=== PATIENT | male | born 1960 | race Caucasian/White ===

== ENCOUNTER 2016-08-07 14:13 | Emergency (ER) ==
[2016-08-07] MEDS ORDERED: NS 1,000 ML IV ONE (15:12)
--- NOTE | 2016-08-07 15:12 | PROVIDER DOCUMENTATION ---
HPI-Syncope/Dizziness - General Chief Complaint: Syncope Stated Complaint: SYNCOPAL EPISODE Time Seen by Provider: 08/07/16 14:25 Source: patient Allergies/Adverse Reactions: Patient Allergies Allergy/AdvReac Type Severity Reaction Status Date / Time No Known Allergies Allergy Verified 08/07/16 14:55 Home Medications: Home Medication List Medication Instructions Recorded Confirmed Last Taken Type Omeprazole 40 mg PO QAM 07/18/15 08/07/16 07/18/15 History Valsartan/Hydrochlorothiazide 1 cap PO DAILY 07/18/15 07/18/15 07/18/15 History [Diovan Hct 160-12.5 mg Tab] Cyanocobalamin (Vitamin B-12) 1 tab PO DAILY 08/07/16 08/07/16 Unknown History [Vitamin B12] Ondansetron [Zofran] 1 tab PO PRN PRN 08/07/16 08/07/16 Unknown History Secukinumab [Cosentyx Pen] 300 mg IM DIRECTED 08/07/16 08/07/16 Unknown History - History of Present Illness-Syncope/Dizzy Nature of Presenting Problem: patient is a 56 y/o M that presents to the ER after having two episodes of syncope. patient reports having n/v and poor appetite over the past few days. denies chest pain or shortness of breath. called ahead and has been following patient for possible cirrhosis. patient is a daily drinker in which drank vodka this am. patient BP was 80 systolic on arrival per EMS Prior Episodes: reports: multiple episodes today Onset/Duration: reports: abrupt, this afternoon Timing: reports: improving Symptoms prior to episode: reports: lightheaded. denies: confusion, recent head trauma, rapid heart beat Context: reports: felt faint, almost passed out Loss of Consciousness: no loss of consciousness Location of injury. (If syncope resulted in an injury.): reports: none Current Symptoms: reports: weakness, lightheaded, lightheaded Recently Seen Here or By Another Healthcare Provider: No Review of Systems - Adult - REVIEW OF SYSTEMS - ADULT Constitutional: denies: chills, fever, fatique Eyes: reports: no symptoms reported Ears, Nose, Mouth & Throat: reports: no symptoms reported Cardiovascular: denies: chest pain, orthopnea, palpitations Respiratory: denies: cough, shortness of breath, wheezing Gastrointestinal: reports: nausea, poor appetite, vomiting. denies: abdominal pain, hematemesis, constipation, diarrhea, rectal bleeding Genitourinary: denies: dysuria, frequency, hematuria, urinary retention Musculoskeletal: reports: muscle weakness. denies: muscle aches Integumentary: reports: no symptoms reported Neurological: reports: dizziness/vertigo, syncope. denies: headache/migraines Psychiatric: reports: no symptoms reported Endocrine: reports: no symptoms reported Hematologic/Lymphatic: reports: no symptoms reported Allergic/Immunologic: reports: no symptoms reported All Other Systems: Reviewed and Negative Past History - Adult - PAST MEDICAL HISTORY-ADULT Review of Records: reports: Old Records Reviewed, Nursing Assessment Review, Medications Reviewed Cardiovascular: reports: HTN Gastrointestinal: reports: GERD, liver disease (cirrhosis) Musculoskeletal: reports: arthritis (psoriatic ) - IMMUNIZATION STATUS Childhood Immunizations: See Nurse Assessment Flu Vaccine: See Nurse Assessment - FAMILY HISTORY Family History: reviewed, not pertinent - SOCIAL HISTORY Smoking: non-smoker Alcohol Use Frequency: every day Number of drinks per typical drinking period:: 5-10 drinks Living Situation: family Physical Exam-General - PHYSICAL EXAM-ADULT Initial Vital Signs Reviewed: Yes - CONSTITUTIONAL General Appearance: alert, other (ill appearing) - EYES Eyes: PERRL/EOMI, scleral icterus - HEAD, EARS, NOSE, MOUTH & THROAT HENMT: normocephalic/atraumatic, pharynx normal, other (dry mucus membranes) - NECK Neck: full range of motion, normal inspection. negative: lymphadenopathy - RESPIRATORY Respiratory: lungs clear, normal breath sounds, no respiratory distress, no accessory muscle use - CARDIOVASCULAR Cardiovascular: regular rate, rhythm, no edema, no JVD - GASTROINTESTINAL (ABDOMEN) Abdominal Exam: normal bowel sounds, no pulsatile mass, hepatomegaly, other ( mild ascities with fluid tension level). negative: distended, guarding, tenderness - MUSCULOSKELETAL Back Exam: no CVA tenderness, no vertebral tenderness Extremity: normal range of motion, no pedal edema, normal capillary refill - SKIN Integumentary: warm/dry, jaundice - NEUROLOGIC Neurologic: grossly normal, no motor/sensory deficits - PSYCHIATRIC Psych/Mental Status: normal mood/affect, normal thought content, normal thought process, oriented x 3 Progress - PLAN OF CARE/RESULTS Progress/Plan/Lab Results: plan of care-labs, ekg, fluids, admit post labs Vital Signs Temp Pulse Resp BP Pulse Ox 08/07/16 16:20 100 H 17 113/56 96 08/07/16 15:38 112 H 19 77/47 97 08/07/16 14:52 97 H 29 H 124/59 97 08/07/16 14:32 97.6 F 90 20 110/73 98 No Known Allergies Allergy (Verified 08/07/16 14:55) Omeprazole 40 mg PO QAM 07/18/15 Valsartan/Hydrochlorothiazide [Diovan Hct 160-12.5 mg Tab] 1 cap PO DAILY Cyanocobalamin (Vitamin B-12) [Vitamin B12] 1 tab PO DAILY 08/07/16 Ondansetron [Zofran] 1 tab PO PRN PRN 08/07/16 Secukinumab [Cosentyx Pen] 300 mg IM DIRECTED 08/07/16 Dietary Diet NPO Start SunAug 07 1510 Laboratory 08/07/16 08/07/16 08/07/16 16:00 15:56 15:14 WBC 9.94 RBC 3.54 L Hgb 12.2 L Hct 33.9 L MCV 95.8 MCH 34.5 H MCHC 36.0 RDW Std Deviation 16.9 H Plt Count 93 L MPV 11.7 H Immature Gran % (Auto) 0.5 Neut % (Auto) 58.7 Lymph % (Auto) 23.6 [place] % (Auto) 14.5 H Eos % (Auto) 1.6 Baso % (Auto) 1.1 H Immature Gran # (Auto) 0.05 H Neut # (Auto) 5.83 Lymph # (Auto) 2.35 [place] # (Auto) 1.44 H Eos # (Auto) 0.16 Baso # (Auto) 0.11 Sodium Potassium Chloride Carbon Dioxide Anion Gap BUN Creatinine Estimated GFR/1.73 m2 BUN/Creatinine Ratio Glucose Calculated Osmolality Calcium Total Bilirubin AST ALT Alkaline Phosphatase Total Protein Albumin Globulin Albumin/Globulin Ratio Amylase Lipase Plasma Lactate 6.2 H Urine Source CLEAN CATCH Urine Color YELLOW Urine Turbidity CLEAR Urine pH 6.5 Ur Specific [place] 1.006 Urine Protein TRACE A Ur Glucose (Stick) NEGATIVE Ur Ketones (Stick) NEGATIVE Urine Blood NEGATIVE Urine Nitrite NEGATIVE Urine Bilirubin SMALL A Urobilinogen Dipstick 2 A Urine Leukocytes NEGATIVE Urine WBC (Auto) <10 Urine RBC (Auto) <10 U Epithel Cells (Auto) <10 Urine Bacteria (Auto) NEGATIVE 08/07/16 15:14 WBC RBC Hgb Hct MCV MCH MCHC RDW Std Deviation Plt Count MPV Immature Gran % (Auto) Neut % (Auto) Lymph % (Auto) [place] % (Auto) Eos % (Auto) Baso % (Auto) Immature Gran # (Auto) Neut # (Auto) Lymph # (Auto) [place] # (Auto) Eos # (Auto) Baso # (Auto) Sodium 135 L Potassium 3.5 Chloride 94 L Carbon Dioxide 16 L Anion Gap 25 BUN 42 H Creatinine 4.0 H Estimated GFR/1.73 m2 16 BUN/Creatinine Ratio 11 Glucose 118 H Calculated Osmolality 282 Calcium 7.9 L Total Bilirubin 12.58 H AST 354 H ALT 104 H Alkaline Phosphatase 211 H Total Protein 7.1 Albumin 2.7 L Globulin 4.4 Albumin/Globulin Ratio 0.6 Amylase 128 Lipase 110 H Plasma Lactate Urine Source Urine Color Urine Turbidity Urine pH Ur Specific [place] Urine Protein Ur Glucose (Stick) Ur Ketones (Stick) Urine Blood Urine Nitrite Urine Bilirubin Urobilinogen Dipstick Urine Leukocytes Urine WBC (Auto) Urine RBC (Auto) U Epithel Cells (Auto) Urine Bacteria (Auto) Orders Category Date Time Status Finger Stick Blood Sugar (ED) DIRECTED Care 08/07/16 15:11 Active Saline Loc DIRECTED Care 08/07/16 15:10 Active NPO Diet 08/07/16 15:10 Active CHEST-2 VIEWS [RAD] Stat Exams 08/07/16 15:11 Draft AMYLASE [CHEM] Stat Lab 08/07/16 15:14 Completed BLOOD CULTURE [BLDCUL] Stat Lab 08/07/16 16:00 Results CBC WITH ELECTRONIC DIFF [HEME] Stat Lab 08/07/16 15:14 Completed COMPREHENSIVE METABOLIC PANEL [CHEM] Stat Lab 08/07/16 15:14 Completed LACTATE, PLASMA [CHEM] Stat Lab 08/07/16 16:00 Completed LIPASE [CHEM] Stat Lab 08/07/16 15:14 Completed URINALYSIS W/POSS RFLX CULT [URINALYSIS] Stat Lab 08/07/16 15:56 Completed 0.9% Sodium Chloride Inj [Ns] 1,000 ml Med 08/07/16 15:12 Active IV 250 mls/hr 0.9% Sodium Chloride Inj [Ns] 1,000 ml Med 08/07/16 15:43 Discontinued IV 999 mls/hr Piperacil/Tazobact 3.375 gm/Ns [Zosyn 3.375 gm/Ns] 50 Med 08/07/16 15:43 Discontinued ml IV NOW EKG [EKG] Stat Ther 08/07/16 15:11 Ordered - REASSESSMENT Reassessment #1 Time Reassessed: 15:44 Status: other ( updated on patient, pt went to stand for orthostatics, pt became light headed and hypotensive with systolic in 70s. patient hadn't started his fluid bolus yet) - CONSULTS/PCP/HOSPITALIST Notification #1 *Consult/PCP/Hospitalist*: Time Discussed: 16:47 Reason/Comments: admit, ct scan abd pelv with po contrast only Consult Disposition: Will see in ED, Admit Departure - Departure Time of Disposition Order: 16:47 DIAGNOSIS: Elevated lactic acid level, Acute kidney injury, Elevated liver enzymes, Jaundice, Abnormal laboratory test result Syncope Qualifiers: Syncope type: unspecified Qualified Code(s): R55 - Syncope and collapse Hypotension Qualifiers: Hypotension type: other hypotension type Qualified Code(s): I95.89 - Other hypotension Sepsis Qualifiers: Sepsis type: sepsis due to unspecified organism Qualified Code(s): A41.9 - Sepsis, unspecified organism Disposition: ADMITTED INPATIENT 09 Certified Medical Emergency: Emergent Condition: Stable - Critical Care Note Total Time (mins): 45 Critical Care Statement: This patient required my direct personal management to treat or rule out processes, the absence of which, could potentiallly result in sudden, clinically significant life or limb threatening deterioration. Attestation - Scribe Verification/Attestation Scribe:: Jovon Arenas Acting as Scribe for:: Vikram Kulkarni Scribe documention review:: This chart was documented by a scribe and accurately reflects the service the provider performed and the decisions made by the provider. Physician Attestation - Physician Attestation I, the provider, attest to the following statement:: Vikram Kulkarni Physician documentation Attestation:: This documentation recorded by the scribe accurately reflects the service I personally performed and the decisions made by me.
[2016-08-07] MEDS ORDERED: ZOSYN 3.375 GM/NS 50 ML IV ONE (15:43)
[2016-08-07] MEDS: NS 1,000 ML IV ONE ×2 (15:43→16:12)
--- NOTE | 2016-08-07 15:53 | Diag Imaging Result Document ---
PROCEDURE NAME: CHEST-2 VIEWS - 08/07/2016 CHEST, 2 VIEWS: COMPARISON: 07/18/2015. FINDINGS: Lung volumes are critically low with bibasilar atelectasis. No obvious infiltrates. The heart size is grossly normal. IMPRESSION: Critically low lung volumes but no obvious acute disease.
[2016-08-07 16:13] LABS: BASO% 1.1 % (0.0-0.8); EOS# 0.16 X1000 (0.0-0.7); EOS% 1.6 % (0.0-10.0); HEMATOCRIT 33.9 % (42.0-52.0); HEMOGLOBIN 12.2 g/dL (14.0-18.0); IMM GRAN# 0.05 X1000 (0.0-0.04); IMM GRAN% 0.5 % (0.0-0.5); LYMPH# 2.35 X1000 (1.2-3.4); LYMPH% 23.6 % (20.5-51.1); MANUAL DIFF NEEDED? NO; MCH 34.5 PG (27-31); MCV 95.8 FL (81-99); MONO# 1.44 X1000 (0.11-0.59); MONO% 14.5 % (1.7-9.3); MPV 11.7 FL (7.4-10.4); NEUT% 58.7 % (42.2-75.2); PLT 93 X1000 (130-400); RBC 3.54 XMIL (4.7-6.1)
[2016-08-07 16:26] LABS: URINE CULTURE NEEDED? NO; URINE MICRO REVIEW NEEDED? NO; URINE SOURCE CLEAN CATCH
[2016-08-07 16:30] LABS: BILIRUBIN URINE SMALL (NEGATIVE); BLOOD URINE NEGATIVE (NEGATIVE); COLOR YELLOW; GLUCOSE URINE NEGATIVE (NEGATIVE); LEUKOCYTES URINE NEGATIVE (NEGATIVE); NITRITE URINE NEGATIVE (NEGATIVE); PH URINE 6.5; PROTEIN URINE TRACE mg/dL (NEGATIVE); SP GRAVITY URINE 1.006; TURBIDITY URINE CLEAR (CLEAR); UR EPITHELIAL CELLS <10 /HPF (<10); URINE BACTERIA NEGATIVE /HPF; URINE RBC <10 /HPF (<10); URINE WBC <10 /HPF (<10); UROBILINOGEN URINE 2 mg/dL (NORMAL)
[2016-08-07 16:32] LABS: ALBUMIN 2.7 g/dL (3.5-5.0); CALCIUM 7.9 mg/dL (8.8-10.2); POTASSIUM 3.5 mmol/L (3.5-5.1); TOTAL BILIRUBIN 12.58 mg/dL (0.20-1.00); TOTAL PROTEIN 7.1 g/dL (6.3-8.3)
[2016-08-07 17:38] LABS: UR AMPHETAMINES QUAL NONE DETECTED (NONE DETECT); UR BARBITUATES QUAL NONE DETECTED (NONE DETECT); UR BENZODIAZEPIN QUAL NONE DETECTED (NONE DETECT); UR CANNABINOIDS QUAL NONE DETECTED (NONE DETECT); UR COCAINE QUAL NONE DETECTED (NONE DETECT); UR CREAT RANDOM 42.5 mg/dL (14-26); UR METHADONE QUAL NONE DETECTED (NONE DETECT); UR OPIATES QUAL NONE DETECTED (NONE DETECT); UR OXYCODONE QUAL NONE DETECTED (NONE DETECT); UR PCP QUAL NONE DETECTED (NONE DETECT)
[2016-08-07] MEDS ORDERED: SODIUM CHLORIDE 0.9% INJ SCH (17:46)
[2016-08-07] MEDS ORDERED: PROTONIX IV SCH (17:46)
[2016-08-07] MEDS ORDERED: NS 1,000 ML IV SCH (17:46)
[2016-08-07] MEDS ORDERED: ZOFRAN IV PRN (17:46)
[2016-08-07] MEDS ORDERED: ATIVAN IV PRN ×2 (17:46)
[2016-08-07 17:54] LABS: INR 1.5; PROTIME 16.2 Seconds (9.2-11.7)
[2016-08-07 18:19] LABS: MAGNESIUM 1.5 mg/dL (1.5-2.7)
[2016-08-07 18:22] LABS: HEMOGLOBIN A1C 5.6 % (4.8-6.0)
[2016-08-07 18:24] LABS: TOTAL IRON 112 ug/dL (53-167); UNBOUND IRON < 1 ug/dL (112-346)
[2016-08-07 18:25] LABS: ACETAMINOPHEN 2.1 ug/mL (10-30)
[2016-08-07 18:31] LABS: FREE T4 1.21 ng/dL (0.93-1.70)
[2016-08-07 19:11] VITALS: BP 102/59
--- NOTE | 2016-08-07 19:27 | CONSULTATION ---
DATE OF CONSULTATION: 08/07/2016 REFERRING PHYSICIAN: Thierno Lowry MD PRIMARY CARE PHYSICIAN: Travon Mirza MD INDICATION FOR CONSULTATION: Acute liver failure. HISTORY OF PRESENT ILLNESS: The patient is a 56-year-old white male followed in our clinic. His past medical history includes psoriasis, psoriatic arthritis, fatty liver, alcohol liver disease, hypertension and obesity. He was initially referred to us by Dr. Zuleta in [place], [place] for evaluation of elevated liver function tests. He had previously been treated with methotrexate for psoriasis followed by transition to Remicade then Enbrel when he developed elevated liver function tests. He also has a known history of fatty liver but has not been compliant with weight reduction. He was in the process of being evaluated for the persistently elevated liver function tests which included a negative hepatitis profile and negative ERIK. He was scheduled to undergo a liver biopsy. However, his blood pressure was high with diastolics in the 120s to 130 range precluding performing a liver biopsy under those circumstances. He was working with his primary care physician over the last 3-4 weeks in order to improve his blood pressure control. We received a call from his who reports that the patient developed fever, hypotension, nausea with vomiting and worsening abdominal pain. He was brought to the emergency room, where is found to be hypotensive with a blood pressure of 77/47 and a heart rate of 112. He subsequently was treated with IV fluids, and had recovery of his blood pressure. His labs were remarkable for elevated liver function tests consistent with acute hepatic failure. His reports that he is clear now but has had episodes of confusion at home. We are asked to participate in his care. PAST MEDICAL HISTORY: 1. Fatty liver disease. 2. Psoriasis. 3. Psoriatic arthritis. 4. Hypertension. 5. Obesity. 6. 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 PAST SURGICAL HISTORY: 1. Appendectomy. 2. Cholecystectomy. 3. Hernia repair. 4. Shoulder surgery. MEDICATION ALLERGIES: None. HOME MEDICATIONS: 1. Diovan. 2. Cosentyx. 3. Zofran. 4. Prilosec. 5. Vitamin B12. SOCIAL HISTORY: Remarkable in that he drinks 4 double shots of vodka throughout the day. He denies tobacco or recreational drug use. FAMILY HISTORY: Negative for liver disease and colon cancer. REVIEW OF SYSTEMS: Remarkable for nausea with vomiting, epigastric pain, and jaundice. PHYSICAL EXAM: Vital signs: On exam, his blood pressure currently is 113/68, pulse 126, respiration 13, temperature of 97.6 degrees. General: He is in no acute distress. HEENT: Remarkable for significant jaundice which is an interval change from his clinic visit approximately 1 month ago. His conjunctivae are pale. His oropharyngeal mucosal membranes are dry. Pulmonary: Lungs are clear to auscultation with normal expiratory effort. Cardiovascular: Reveals a resting tachycardia with a regular rhythm. There are no murmurs, gallops, or rubs. Abdominal Exam: Reveals normoactive bowel sounds. The abdomen is soft, nontender, but is protuberant. Extremities: Bilaterally are negative for cyanosis, clubbing, or edema. Inspection of the skin is remarkable for psoriatic lesions. Neurologic: He is alert and oriented x3 but has evidence of asterixis on his neurologic exam, which is new. OBJECTIVE DATA: Remarkable for hemoglobin of 12.2 with hematocrit of 33.9 and a white count of 9.94. He has 93,000 platelets which is an interval change since last month. His PT is 16.2 with an INR of 1.50. His sodium is 135, potassium 3.5, chloride 94, CO2 16, BUN 42, creatinine 4.0. Of note, on 07/07/2016 his BUN was 15 and his creatinine was 0.9. His glucose is 118. His hemoglobin A1c is 5.6. His calcium is 7.9, phosphorus 3.2, magnesium 1.5, iron 112, total bilirubin 12.58. His AST is 354 with an ALT of 104, ferritin of 2000, and alkaline phosphatase at 211. His total protein is 7.1 with an albumin of 2.7. His CK is 73. His amylase is 128 with a lipase of 110 and a plasma lactate of 6.2. His vitamin B12 is greater than 2000. His folic acid remains low at 4.5. His urinalysis is negative for white blood cells. His urine toxicology screen reveals a salicylate level less than 3.0. His acetaminophen level is 2.1. His blood alcohol level was 276. On 07/07/2016, his hepatitis A, B and C were negative. IMPRESSION: 1. Acute liver failure. 2. Alcohol liver disease. 3. Fatty liver. 4. Possible drug toxicity secondary to Cosentyx. 5. Macrocytic anemia. 6. Folate deficiency. 7. Hypotension. 8. Asterixis. RECOMMENDATION: 1. I am concerned that the patient is going into fulminant hepatic failure. Therefore, I recommend transfer to [facility] for impending liver failure. I spoke with Dr. Malinda Boyd who is willing to accept the patient in transfer. 2. Following hospital discharge, will be happy to care for the patient upon his return to [place]. 3. His CT scan was done and is remarkable for caput medusa as well as severe fatty liver consistent with the patient's clinical history. There were no other lesions noted. The final report is pending. 4. Continue IV fluids as you are doing. 5. Continue IV antibiotics as you are doing. 6. Continue Protonix as you are doing. 7. Please contact [facility] for urgent transfer as the patient is at risk for rapid clinical deterioration. 8. My recommendations were discussed with Dr. Lowry, Dr. Kulkarni in the emergency room, and with the patient as well as his family.
[2016-08-07 20:18] LABS: IRON SATURATION 100 %; TIBC 112 ug/dL
--- NOTE | 2016-08-07 22:53 | HISTORY AND PHYSICAL ---
PRIMARY CARE PHYSICIAN: Travon Rojas M.D. LAUNDRY HELPER: Socrates Olivera M.D. CENTERLESS GRINDER OPERATOR: Elba Cuevas M.D. CHIEF COMPLAINT: Fatigue, syncope, jaundice. HISTORY OF PRESENT ILLNESS: Mr. Muir is a 56-year-old male with a history of psoriatic arthritis who is followed by Dr. Olivera. He also has a history of fatty liver disease, alcohol dependence, GERD, hypertension and B12 deficiency. Really over the past few months the patient has had worsening fatigue, weakness, occasional nausea and vomiting. In May of this year he was started on Cosentyx for his psoriatic arthritis. Recently Dr. Olivera noted that he take a slight elevation in his liver function tests and had him follow up with Dr. Cuevas. Dr. Cuevas ultimately wanted a liver biopsy but has been unable to do so secondary to his hypertension which apparently has been fairly severe over the past few weeks. The patient has been feeling worse over the past few weeks and days. He reports fatigue, sleeping around 20 hours a day, occasional vomiting and jaundice. He denies any fevers or chills. No nausea, no chest pain, no shortness of breath, no real abdominal pain. His was concerned and brought him to the ER today for evaluation. In the ER he had labs and diagnostics done. His metabolic profile revealed severe liver failure with a bilirubin of 12.58, transaminitis and renal failure with a creatinine of 4. Lactic acid was noted to be 6.2. Apparently he has also been hypotensive with a systolic in the 70s and 80s over the past few days. Currently his blood pressure has normalized with fluids, however, given his constellation of symptoms and diagnostic data, we are going to place him in the ICU. PAST MEDICAL HISTORY: 1. Psoriatic arthritis. 2. Alcohol dependence. 3. GERD. 4. Hypertension. 5. Hypokalemia. 6. B12 deficiency. PAST SURGICAL HISTORY: Hernia repair, cholecystectomy, appendectomy, bilateral shoulder scopes. SOCIAL HISTORY: Patient denies tobacco or drug use. He reports drinking 4 double shot drinks of vodka a day and has been doing so since his teens. 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 He is and his is at the bedside. FAMILY HISTORY: Noncontributory at this time. REVIEW OF SYSTEMS: Fourteen-point review of systems obtained. These were found to be negative with the exception of the HPI. ALLERGIES: No known drug allergies. HOME MEDICATIONS: B12 at 5000 mcg daily, omeprazole 40 mg daily, Zofran 4 mg as needed, Cosentyx 10/300 mg intramuscular as directed, Diovan as directed. PHYSICAL EXAMINATION: VITAL SIGNS: Blood pressure 113/68, heart rate is 126, respiratory rate is 25, O2 saturations 94% on room air, temperature is 97.6 degrees. GENERAL: This is an obese, male. He is lying in hospital bed, in no acute distress. NEUROLOGIC: He is awake, alert, and oriented. He follows commands without focal deficits. While he does answer orientation questions correctly, he does seem a bit dazed. It does take him a little bit of time to answer those questions overall. HEENT: Head is atraumatic and normocephalic. His pupils are equal, round, reactive to light. Sclerae are icteric. Conjunctivae pale. Oral mucosa is dry and pale, overall clear. NECK: Supple. No JVD. No carotid bruits. CHEST: Clear to auscultation bilaterally. CARDIOVASCULAR: Regular rate and rhythm. S1-S2 is noted. No murmurs, gallops, clicks, rubs. GASTROINTESTINAL: Soft, perhaps slightly distended but no tenderness to palpation. EXTREMITIES: Pulses palpable but diminished bilaterally. DIAGNOSTIC DATA: Chest x-ray shows low lung volumes but nothing acute. Sodium 135, potassium 3.5, chloride 94, CO2 16, anion gap 25, BUN 42, creatinine 4, glucose is 118, calcium 7.9. Bilirubin 12.58, AST 354, ALT 104, alkaline phosphatase 211, albumin 2.7, amylase 128, lipase 110, lactic acid 6.2. WBC 9.94, hemoglobin 12.2, hematocrit 33.9, platelet count 93,000. Urine shows 2A urobilinogen and trace protein, otherwise negative. ASSESSMENT AND PLAN: 1. Acute hepatitis/liver failure: While likely alcohol induced, would not rule out medication induced secondary to his biologics. Perhaps a combination of alcohol and biologics could also be causing his liver failure. Either way the patient will be going to the ICU, where we will check a CT and ultrasound of his abdomen. Dr. Cuevas has already been consulted. He may need a biopsy of the liver and paracentesis. We will also treat him prophylactically for SBP with Rocephin 2 g IV. We will check acetaminophen, salicylate, alcohol levels, PT/INR, thyroid function, iron studies to rule out secondary causes of his liver failure. We will also check drug screen. 2. Acute renal failure: We are going to check an ultrasound, urine electrolytes. We will consult Dr. Redmond. Given his hypotension this is likely prerenal, however, would not rule out up hepatorenal syndrome given his fulminant liver failure. 3. Lactic acidosis: Likely secondary to hypotension. Patient does not have a white count nor is he febrile. Blood cultures have been obtained and we are starting Rocephin for SBP prophylaxis. 4. Anemia and thrombocytopenia: Likely secondary to alcohol use and liver dysfunction. We are checking iron studies and we will treat appropriately. 5. Psoriatic arthritis: We are going to hold all of his medications for now. Overall this is stable. 6. Alcohol dependence: Patient is high risk for severe alcohol withdrawal/DTs. We are going to check alcohol level, B12 and folate. We are going to make sure he has Ativan as needed for withdrawal symptoms. We will start a banana bag as well. We have counseled the patient on the importance of alcohol cessation and the need for long-term treatment with AA and/or psychotherapy. Patient verbalized understanding. 7. Gastrointestinal prophylaxis will be provided with Protonix. Deep vein thrombosis prophylaxis with SCDs given his level of renal failure. Further recommendations to follow. Dictated by LOUIE Mesa for Thierno Estrada MD
--- NOTE | 2016-08-08 08:08 | Diag Imaging Result Document ---
PROCEDURE NAME: CT ABD/PELVIS ORAL CONTR ONLY - 08/07/2016 CT OF THE ABDOMEN WITH ORAL BUT NO INTRAVENOUS CONTRAST: FINDINGS: There is some motion artifact. There is no gross acute pulmonary disease seen in the visualized portion of the chest. The liver is enlarged and hypodense. The spleen is not particularly enlarged. Given the lack of IV contrast, the pancreas is relatively normal in appearance. There has been previous appendectomy. There is dilatation of the proximal small bowel and normal to decreased caliber of the ileum. Oral contrast is only seen in the jejunum. The adrenal glands are not enlarged. There are varices present particularly anterior to the liver anastomosing with the apparently patent umbilical vein. There is no evidence of stones or obstruction in the kidneys. There is some gas and stool in the colon particularly distal to the mid transverse colon. CT OF THE PELVIS WITH ORAL CONTRAST: FINDINGS: Urinary bladder is unremarkable. There is no evidence of free fluid. There is gas and stool in the rectum. IMPRESSION: Possibility of ileus versus partial small-bowel obstruction is suspected. Severe hepatic steatosis or steatohepatitis. Periumbilical varices. No definite evidence of pancreatitis.
[2016-08-08] MEDS ORDERED: M.V.I.-12 10 ML, FOLIC ACID 1 MG, MAGNESIUM SULFATE 1 GM, THIAMINE 100 MG in NS 1,000 ML IV SCH (09:00)
== END 2016-08-08 19:06 | disposition short-term general hospital (02) ==
LOC: EDBD → ED 14:13
DX: A41.9 Sepsis, unspecified organism (principal); I95.89 Other hypotension; N17.9 Acute kidney failure, unspecified; R55 Syncope and collapse; R17 Unspecified jaundice; R74.0 Nonspecific elevation of levels of transaminase and lactic acid dehydrogenase [LDH]; R74.8 Abnormal levels of other serum enzymes; R79.9 Abnormal finding of blood chemistry, unspecified; K72.90 Hepatic failure, unspecified without coma; E87.2 Acidosis; D69.6 Thrombocytopenia, unspecified; D64.9 Anemia, unspecified; F10.20 Alcohol dependence, uncomplicated; K76.0 Fatty (change of) liver, not elsewhere classified; K70.31 Alcoholic cirrhosis of liver with ascites; R11.2 Nausea with vomiting, unspecified; R42 Dizziness and giddiness; M62.81 Muscle weakness (generalized); R16.0 Hepatomegaly, not elsewhere classified; R53.83 Other fatigue; R10.9 Unspecified abdominal pain; I10 Essential (primary) hypertension; K21.9 Gastro-esophageal reflux disease without esophagitis; L40.50 Arthropathic psoriasis, unspecified; E66.9 Obesity, unspecified; Z79.899 Other long term (current) drug therapy
CPT/HCPCS: 71020; 74176; 80053; 80074; 81001; 82140; 82150; 82550; 82570; 82607; 82728; 82746; 82948; 83036; 83540; 83550; 83605; 83690; 83735; 83935; 84100; 84300; 84439; 84443; 85025; 85610; 86038; 87040; 96365; G0480; J2543; J7030; 80320; 80324; 80329; 80345; 80346; 80349; 80353; 80358; 80361; 80365; 83992